=== PATIENT | male | born 1935 | race Caucasian/White ===

== ENCOUNTER 2017-08-11 08:22 | Emergency (ER) | payer MEDICARE, BC ==
[~2017-08-11] VITALS: Ht 182.9 cm; Wt 63.5 kg
[~2017-08-11 08:22] MED LIST: AMIT50TA3 PO; CEPH-570 PO; ERGO500040 PO; LEVO150T PO; OXYC10TA59 PO; OXYC5TAB3 PO; PRED-170 PO; TERA10CA4 PO; TERA5CAP4 PO
[2017-08-11] MEDS ORDERED: GABAPENTIN 100 MG CAPSULE (08:36)
[2017-08-11] MEDS ORDERED: CARVEDILOL 12.5 MG (08:36)
[2017-08-11] MEDS ORDERED: ONDANSETRON ODT 4 MG TABLET (08:36)
[2017-08-11] MEDS ORDERED: AMLODIPINE BESYLATE 5 MG TABS (08:36)
[2017-08-11] MEDS ORDERED: DICYCLOMINE 20 MG TABLET (08:36)
[2017-08-11] MEDS ORDERED: FINASTERIDE 5 MG (08:36)
--- NOTE | 2017-08-11 08:50 | NUR ---
Dr. Olmstead at bedside for MSE.
[2017-08-11 09:45] VITALS: BP 145/85
== END 2017-08-11 09:40 | disposition home or self-care (01) ==
LOC: ER 08:27
DX: M79.641 Pain in right hand (principal); M06.9 Rheumatoid arthritis, unspecified; Z96.653 Presence of artificial knee joint, bilateral; I10 Essential (primary) hypertension
CPT/HCPCS: 73110; 73130; A4663